=== PATIENT | female | born 1990 | race Caucasian/White ===

== ENCOUNTER → 2020-01-21 | Outpatient (CLI) | payer OTHER, SELFPAY | END | disposition home or self-care (01) | LOC: LABSPEC 12:30 | PROVIDERS: PCP Family Medicine; Referring Provider Family Medicine; Visit Provider Family Medicine | DX: Z03.818 Encounter for observation for suspected exposure to other biological agents ruled out (principal); Z11.59 Encounter for screening for other viral diseases | CPT/HCPCS: 87635; U0003 ==

== ENCOUNTER → 2020-02-04 | Outpatient (CLI) | payer OTHER, SELFPAY ==
[2013-02-19 10:14] VITALS: BMI 24.7
== END | disposition home or self-care (01) ==
PROVIDERS: Visit Provider Family Medicine
DX: Z03.818 Encounter for observation for suspected exposure to other biological agents ruled out (principal); Z11.59 Encounter for screening for other viral diseases
CPT/HCPCS: 87635; U0003

== ENCOUNTER → 2020-02-18 | Outpatient (CLI) | payer OTHER, SELFPAY ==
[2013-02-19 10:14] VITALS: BMI 24.7
== END | disposition home or self-care (01) ==
LOC: LABSPEC 02-19 07:38
PROVIDERS: Referring Provider Family Medicine; Visit Provider Family Medicine
DX: Z03.818 Encounter for observation for suspected exposure to other biological agents ruled out (principal); Z11.59 Encounter for screening for other viral diseases
CPT/HCPCS: 87635; U0003

== ENCOUNTER → 2020-03-03 | Outpatient (CLI) | payer OTHER, SELFPAY ==
[2013-02-19 10:14] VITALS: BMI 24.7
== END | disposition home or self-care (01) ==
LOC: LABSPEC 10:03
PROVIDERS: Referring Provider Family Medicine; Visit Provider Family Medicine
DX: Z03.818 Encounter for observation for suspected exposure to other biological agents ruled out (principal)
CPT/HCPCS: 87635; U0003

== ENCOUNTER → 2020-03-17 | Outpatient (CLI) | payer OTHER, SELFPAY | END | disposition home or self-care (01) | LOC: LABSPEC 12:23 | PROVIDERS: Referring Provider Family Medicine; Visit Provider Family Medicine | DX: Z03.818 Encounter for observation for suspected exposure to other biological agents ruled out (principal); Z11.59 Encounter for screening for other viral diseases | CPT/HCPCS: 87635; U0003 ==

== ENCOUNTER 2022-09-19 16:47 | Outpatient (CLI) | payer MEDICAID, SELFPAY ==
[2022-09-26 13:08] LABS: HPV APTIMA, High Risk Negative (Negative)
== END 2022-09-19 23:59 | disposition home or self-care (01) ==
LOC: LABSPEC 16:49
PROVIDERS: Referring Provider Obstetrics & Gynecology; Visit Provider Obstetrics & Gynecology
DX: Z12.4 Encounter for screening for malignant neoplasm of cervix (principal)
CPT/HCPCS: 87624; 88175; G0145

== ENCOUNTER → 2022-10-04 | Outpatient (CLI) | payer MEDICAID, SELFPAY ==
--- NOTE | 2022-10-04 08:24 | US_ITS ---
INDICATION: Perineal pain and bleeding, history of hysterectomy with left oophorectomy EXAMINATION: Ultrasound US Pelvis Non OB Complete With Transvaginal Imaging TECHNIQUE: Transabdominal and transvaginal pelvic ultrasound was performed. Grayscale, spectral waveform, and color flow Doppler evaluation of the adnexa. COMPARISON: None. FINDINGS: UTERUS: Surgically absent. RIGHT OVARY: 4.5 x 3.7 x 2.9 cm. Cystic lesion measures 2.4 x 2.1 x 2.1 cm with diffuse low-level internal echoes. There is normal arterial inflow and venous outflow present in the right ovary. LEFT OVARY: Surgically absent. FREE FLUID: None. US/Pelvic (Non ) IMPRESSION: Complex cystic lesion right ovary, 2.4 cm, hemorrhagic cyst versus endometrioma. Recommend sonographic follow-up in 4-6 weeks. Electronically Signed: Luigi Castillo MD at 20:33 EDT ,
== END | disposition home or self-care (01) ==
LOC: OPUS 08:23
PROVIDERS: PCP Nurse Practitioner Family; Referring Provider Obstetrics & Gynecology; Visit Provider Obstetrics & Gynecology
DX: R10.2 Pelvic and perineal pain (principal); N93.9 Abnormal uterine and vaginal bleeding, unspecified
CPT/HCPCS: 76830; 76856

== ENCOUNTER 2022-10-10 13:48 | Emergency (ER) | payer MEDICAID, SELFPAY ==
[2022-10-10 13:49] VITALS: BP 126/93; PULSE 76; RESP 18; TEMP 36.6; O2SAT 100
[2022-10-10 13:56] VITALS: O2SAT 100; BMI 28.2
--- NOTE | 2022-10-10 14:34 | EDS_ITS ---
HPI History of Present Illness Chief Complaint: Shortness of Breath Informant: patient Onset/Context/Timing Onset: Weeks Context: gradual Timing: Continuous Worsened by: - (Eating and drinking) Relieved by: Nothing Associated Symptoms cough, rhinorrhea, post nasal drip and sore throat; Negative for fever, chills, clear sputum, white sputum, yellow sputum or green sputum Chest Pain: Positive for None Narrative Narrative: Patient presents with shortness of breath that has been getting worse over the past few weeks. Patient states it is gradually getting worse. Patient states she feels like there is some swelling in her neck. Patient states it is worse with eating or drinking anything. Patient states nothing seems to help with it. Patient admits to some postnasal drainage and a cough. Patient also admits to a sore throat. Patient denies any fevers or chills. Patient denies any chest pain. Patient denies any PE risk factors. [facility] Medical History Asthma Thyroid nodule Home Medications cetirizine 10 mg tablet (Zyrtec) 10 mg PO DAILY PRN Allergic Symptoms 08/01/22 [History Last Taken Unknown] fluoxetine 10 mg capsule (Prozac) 10 mg PO DAILY #30 caps 09/19/22 [Rx Last Taken Unknown] albuterol sulfate 90 mcg/actuation aerosol inhaler (Ventolin HFA) 1 - 2 puff i nhalation Q4H PRN PRN Wheezing ##1 10/10/22 [Rx Last Taken Unknown] fexofenadine 30 mg tablet 60 mg PO BID 10/10/22 [History Last Taken Unknown] montelukast 10 mg tablet (Singulair) 10 mg PO DAILY 10/10/22 [History Last Taken Unknown] Allergy/AdvReac Type Severity Reaction Status Date / Time doxycycline Allergy Mild Vomiting Verified 10/10/22 13:49 Family History Father Heart disease Diabetes Hyperlipidemia Mother Hyperlipidemia Surgical History S/P S/P hysterectomy S/P wisdom tooth extraction Social History household members: spouse and family Smoking Status: Never smoker alcohol intake: never substance use type: does not use caffeine: No what type of physical activity do you participate in: none seatbelt use: always do you feel safe at home: Yes additional social history: - [place] ROS ROS ED Constitutional Constitutional ED: Denies chills or fever(s) Eyes Eyes: Denies blurry vision or change in vision ENT ENT ED: Reports ear pain and sore throat Cardiovascular Cardiovascular: Denies chest pain or palpitations Respiratory/Chest Respiratory/Chest: Reports dyspnea; Denies cough Gastrointestinal Gastrointestinal: Denies nausea or vomiting Genitourinary Genitourinary ED: Denies dysuria or hematuria Musculoskeletal Musculoskeletal: Reports neck pain; Denies back pain Integumentary Denies abscess or rash Neurologic Neurologic: Denies headache(s) or weakness Allergic/Immunologic Allergic/Immunologic ED: Denies mouth swelling or urticaria EXAM Physical Exam Const Vital Signs: 10/10/22 13:49 10/10/22 13:56 10/10/22 14:49 Temperature 97.8 F Temperature Source Temporal Pulse Rate 76 79 Respiratory Rate 18 18 Respiratory Effort Short of Breath Labored Respiratory Depth Deep Respiratory Pattern Irregular Normal Blood Pressure 126/93 H Blood Pressure Mean 104 Pulse Ox 100 Oxygen Delivery Method Room Air Room Air Positive well nourished and well developed General Appearance ED: well developed HEENT Reports moist mucous membranes HEENT Narrative: Oropharynx shows some mild postnasal drainage. There is no erythema. There is no exudate noted. Neck supple, no meningeal signs and no JVD Neck Narrative: There is tender anterior cervical lymphadenopathy noted. Resp normal respiratory effort and clear to auscultation bilaterally Cardio regular rate, regular rhythm and no murmurs GI normal to inspection, nondistended, normoactive bowel sounds and non-tender Palpation: soft Extremity normal to inspection General Extremety ED: Negative for edema or tenderness General Extremity: Negative for edema Neuro oriented x3, CN's II-XII intact bilaterally and no sensory deficits noted Sensorium / Orientation: alert Motor Exam: strength 5/5 throughout Psych mental status grossly normal Skin no rashes or lesions noted MDM MDM MDM Narrative Medical decision making narrative: Differential diagnosis includes pharyngitis, viral upper respiratory infection, asthma exacerbation, anxiety, COVID infection, influenza infection, and pneumonia. CBC will be obtained to assess for leukocytosis and anemia. Basic metabolic profile will be obtained to assess for electrolyte abnormality and renal function. COVID-19 rapid antigen will be obtained to assess for COVID infection. Influenza A and influenza B antigens will be obtained to assess for influenza infection. Chest x-ray will be obtained to assess for pneumonia. Rapid strep will be obtained to assess for strep pharyngitis. Lab Data Attestation: I reviewed the patient's lab results. Lab results narrative: CBC was reviewed. There is a mild leukocytosis of 11.6. The remainder is within normal limits. Basic metabolic profile was reviewed and was within normal limits. Labs: Laboratory Results - last 24 hr 10/10/22 10/10/22 14:47 15:36 WBC 11.6 H RBC 5.00 Hgb 14.6 Hct 44.2 MCV 88.4 MCH 29.2 MCHC 33.0 RDW Std Deviation 41.0 RDW Coeff of Tiffanie 12.6 Plt Count 407 MPV 9.1 Immature Gran % (Auto) 0.300 Neut % (Auto) 60.5 Lymph % (Auto) 33.6 Bond % (Auto) 4.3 Eos % (Auto) 0.7 Baso % (Auto) 0.6 Absolute Neuts (auto) 7.0 Absolute Lymphs (auto) 3.90 Nucleated RBC % 0 Sodium 139 Potassium 4.6 Chloride 110 H Carbon Dioxide 23.0 Anion Gap 6 BUN 10 Creatinine 1.02 Estim Creat Clear Calc 65.50 Est GFR (MDRD) Af Amer 81 Est GFR (MDRD) Non-Af 67 BUN/Creatinine Ratio 9.8 L Glucose 84 Calcium 9.4 Radiography Diagnostic Testing: Clinical Impression(s) from Imaging Studies Chest X-Ray 10/10/22 15:00 IMPRESSION: Normal x-ray examination of the chest. Electronically Signed: Enrique Herrera MD at 15:17 EDT , PA and lateral chest x-ray was obtained. There are 2 views. On my independent interpretation, lung montague are clear. There is normal cardiac silhouette. Bony thorax is normal. There is no acute process noted. Radiologist also interpreted the x-ray and agrees. Treatment and Re-Evaluation :: Patient was given a DuoNeb aerosol here. Patient felt better after this. Patient was given a prescription for a new inhaler. Patient was instructed to follow-up with her primary care physician in 5 to 7 days for further evaluation. Patient understood and was agreeable with the plan. All questions were answered. Discharge Plan Triage Chief Complaint: Shortness of Breath ED Provider: Juanito Fitzpatrick Dx/Rx/DC Orders Clinical Impression: Asthma Instructions: ED Asthma, Acute (Adult) Prescriptions: New albuterol sulfate [Ventolin HFA] 90 mcg/actuation HFA aerosol inhaler 1 - 2 puff inhalation Q4H PRN PRN (Reason: Wheezing) Qty: 1 0RF No Action cetirizine [Zyrtec] 10 mg tablet 10 mg PO DAILY PRN (Reason: Allergic Symptoms) fluoxetine [Prozac] 10 mg capsule 10 mg PO DAILY Qty: 30 1RF Terri 30 mg Tablet 60 mg PO BID montelukast [Singulair] 10 mg Tablet 10 mg PO DAILY Primary Care Provider: Eliza Geiger NP Referrals: Eliza Geiger NP, [facility] [Primary Care Provider] - 5-7 Days Disposition Disposition: Home, Self Care
[2022-10-10] MEDS: Ipratropium/Albuterol Sulfate 3 ML AMPUL.NEB INHALATION (14:47)
[2022-10-10 14:49] VITALS: PULSE 79; RESP 18
--- NOTE | 2022-10-10 15:00 | RAD_ITS ---
STUDY: X-RAY CHEST REASON FOR EXAM: Female, 32 years old. 3 week history of dyspnea. Asthma. TECHNIQUE: PA and lateral views of the chest. COMPARISON: None. FINDINGS: The lungs are clear and expanded. There is no demonstrated pleural abnormality. Normal size heart. Normal mediastinum and [place]. Normal visualized pulmonary arteries. Normal visualized aortic arch and descending thoracic aorta. Normal visualized thoracic spine. Normal visualized ribs, clavicles, and shoulders. There is no demonstrated abnormality of the visualized soft tissue structures of the upper abdomen. RAD/Chest PA and Lateral IMPRESSION: Normal x-ray examination of the chest. Electronically Signed: Enrique Herrera MD at 15:17 EDT ,
[2022-10-10 15:30] LABS: Anion Gap 6 (5-15); BUN 10 mg/dL (7-18); BUN/Creat Ratio 9.8 RATIO (10-20); Calcium,Total 9.4 mg/dL (8.5-10.1); Chloride 110 mmol/L (98-107); Creatinine, Serum 1.02 mg/dL (0.55-1.02); EST Glomerular Filtration Rate 67 mL/min (>60); Est Glom Filt Rate - Afr Amer 81 mL/min (>60); Glucose 84 mg/dL (74-106); Potassium 4.6 mmol/L (3.5-5.1); Sodium Level 139 mmol/L (136-145)
[2022-10-10 15:56] LABS: Basophil# 0.07 X10^3/uL; Basophil% 0.6 % (0-1); Eosinophil# 0.08 X10^3/uL; Eosinophils% 0.7 % (0-5); Hematocrit 44.2 % (37-47); Hemoglobin 14.6 g/dL (12.0-15.0); Lymphocyte % 33.6 % (19-41); Mean Corpuscular Hgb 29.2 pg (27.0-32.0); Mean Corpuscular Volume 88.4 fL (81-99); Mean Platelet Vol. 9.1 fl (6.2-12.0); Monocyte% 4.3 % (0-10); NRBC Flagged by Analyzer 0 % (0-5); Neutrophil # 7.02 X10^3/uL (2.7-7.7); Neutrophil % 60.5 % (47-70); Platelet Count 407 K/mm3 (150-450); RBC Distribution Width CV 12.6 % (11.6-14.6); White Blood Count 11.6 K/mm3 (4.4-11.0)
[2022-10-10 16:30] VITALS: BP 115/74; PULSE 82; RESP 15; O2SAT 97
== END 2022-10-10 16:30 | disposition home or self-care (01) ==
PROVIDERS: Emergency Provider Emergency Medicine; PCP Nurse Practitioner Family; Visit Provider Emergency Medicine
DX: J45.909 Unspecified asthma, uncomplicated (principal); J02.9 Acute pharyngitis, unspecified; Z79.899 Other long term (current) drug therapy; R22.1 Localized swelling, mass and lump, neck
CPT/HCPCS: 71046; 80048; 85025; 87428; 87880; 94640; 99283; A4216

== ENCOUNTER → 2022-11-13 | Outpatient (CLI) | payer MEDICAID, SELFPAY ==
--- NOTE | 2022-11-13 12:56 | US_ITS ---
INDICATION: ovarian cyst-right ovary EXAMINATION: US Pelvis Non-OB Complete TECHNIQUE: Transabdominal pelvic ultrasound was performed. Grayscale, spectral waveform, and color flow Doppler evaluation of the adnexa. COMPARISON: None. FINDINGS: UTERUS: Surgically absent. RIGHT OVARY: Measures 3.4 x 1.3 x 3.5 cm. Non-enlarged, normal echogenicity. There is normal arterial inflow and venous outflow present in the right ovary. LEFT OVARY: Surgically absent. FREE FLUID: None. US/Pelvic (Non ) IMPRESSION: Status post hysterectomy and left oophorectomy. Normal right ovary. No cyst. Electronically Signed: Nadeem Borrero MD at 0:28 EDT ,
== END | disposition home or self-care (01) ==
LOC: US 12:51
PROVIDERS: PCP Nurse Practitioner Family; Referring Provider Obstetrics & Gynecology; Visit Provider Obstetrics & Gynecology
DX: N83.201 Unspecified ovarian cyst, right side (principal)
CPT/HCPCS: 76856